=== PATIENT | male | born 1935 | race Native Hawaiian/Other Pacific Islander ===

== ENCOUNTER 2017-09-01 14:15 | Inpatient (IN) | payer OTHER ==
[~2017-09-01] VITALS: Ht 180.3 cm; Wt 99.9 kg
[2017-09-01 15:35] VITALS: BP 170/75; TEMP 98.2; Ht 180.3 cm; Wt 99.9 kg
[2017-09-01] MEDS ORDERED: DOCU100C10 PO (16:28)
[2017-09-01] MEDS ORDERED: GABA300C2 PO (16:29)
[2017-09-01] MEDS ORDERED: ENALAPRIL10 MG PO (16:29)
[2017-09-01] MEDS ORDERED: LEVO-T200 MCG PO (16:32)
[2017-09-01] MEDS ORDERED: XALATAN0.005 % OP (16:32)
[2017-09-01] MEDS ORDERED: OMEPRAZOLE20 M2 PO (16:33)
[2017-09-01] MEDS ORDERED: HYDR5TAB9 PO (16:34)
[2017-09-01] MEDS ORDERED: DIPH25CA90 PO (16:35)
[2017-09-01] MEDS ORDERED: ROBAXIN500 M1 PO (16:36)
[2017-09-01] MEDS ORDERED: MIRALAX3350 N1 PO (16:37)
[2017-09-01] MEDS ORDERED: ONDA4TAB3 PO (16:37)
[2017-09-01] MEDS ORDERED: ENOX30IN2 SC (16:38)
[2017-09-01 20:00] VITALS: BP 162/62; TEMP 99.1
--- NOTE | 2017-09-02 00:58 | NUR ---
09/01/171999 PT ASSISTED TO RESTROOM WITH WALKER TOLERATED WELL HAD BM.ASSISTED TO BED,PT WAS ABLE TO PULL SELF UP IN BED.SPLINT TO LEFT LEG INTACT.NO C/O VOICED AT THIS TIME.CC
--- NOTE | 2017-09-02 01:01 | NUR ---
09/02/17 0015 PT RESTING IN BED WITH EYES CLOSED RESP EVEN NONLABORED NAD NOTED.CC
--- NOTE | 2017-09-02 01:08 | NUR ---
09/02/17 0045 RESTING WITH EYES CLOSED NAD NOTED.CC
--- NOTE | 2017-09-02 04:27 | NUR ---
09/02/27 0420 AWAKE ALERT PT USING URINAL 250ML YELLOW URINE.PROVIDED MILK AND CRACKERS.CC
--- NOTE | 2017-09-02 06:22 | NUR ---
09/02/17 0615 PT AWAKE ALERT REQUESTED PAIN MEDICATION RATES PAIN 5 ON SCALE 1-10,NORCO GIVEN X 1 TABLET.CC
[2017-09-02 08:00] VITALS: BP 132/60; TEMP 98.6
--- NOTE | 2017-09-02 08:45 | NUR ---
IN TO INTERVIEW PT FOR SWING BED, UPON ARRIVAL TO PT'S ROOM PT IS SITTING UP IN BED FEEDING HIMSELF BREAKFAST. PT STATES THAT THIS MORNING IS THE BEST HE HAS EATEN SINCE HE HAS BEEN SICK. PT GIVEN THE WORDS SOCK BLUE AND BED AND PT IS ABLE TO REPEAT ALL 3. PT THEN TOLD TO REMEMBER ALL 3 WORDS TO RECALL THEM LATER IN INTERVIEW. PT STATES IT IS TUESDAY, AUGUST OF 2017 AND ALL INFO IS CORRECT. PT STATES HE IS NOT IN TOO MUCH PAIN THAT HE DOESN'T HAVE PAIN EVERY DAY JUST SOMETIMES. PT STATES HE IS SLEEPING ALOT IN THE DAYTIME SO SOMETIMES HE DOESNT SLEEP VERY WELL AT NIGHT. PT DENIES ANY FEELINGS OF HURTING HIMSELF OR FEELING BAD ABOUT HIMSELF. PT STATES HE IS GOING HOME ON DISCHARGE AND THAT HE LIVES ALONE AND WANTS TO MAKE SURE HE IS ABLE TO CARE FOR HIMSELF BEFORE HE LEAVES. PT ABLE TO RECALL SOCK BLUE AND BED WITHOUT ANY CUEING. PT DENIES ANY FURTHER NEEDS AT THIS TIME.
--- NOTE | 2017-09-02 12:30 | NUR ---
Pt. RESTING IN CHAIR FROM PHYSICAL THERAPHY. Pt. STATES I EXERCISE HARD. I'M A LITTLE TIRED.
--- NOTE | 2017-09-02 13:25 | NUR ---
MR. BANDAR BROUSSARD IS A 81 YEAR-OLD ADMITTED TO [facility] FOR REHABILITATION AFTER A SECOND KNEE SURGERY R/T PATIENT HAD SEVERAL FALLS WHILE IN REHAB AT ANOTHER FACILITY IN WHICH HIS LEFT KNEE DEHISSED AND BECAME INFECTED. IT ALSO APPEARS THAT PATIENT POSSIBLY BECAME SEPTIC. PATIENT UNDERWENT LEFT KNEE REPAIR WITH CULTURES OBTAINED AND A WASH OUT OF LEFT KNEE. PATIENT IS ON IV ANTIBIOTICS SENSITIVE TO THE BACTERIA CULTURED FROM THE LEFT KNEE. PATIENT AT THIS TIME HAS A KNEE IMMOBILIZER, USES A WALKER AND ONLY TOE TOUCH WEIGHT BEARING. MR BROUSSARD REQUIRES 24 HOUR [facility] CARE, WHICH IS A PRACTAL MATTER AND CAN ONLY BE DONE ON A INPATIENT BASIS BECAUSE HE LIVES AT HOME ALONE, HE NEEDS HELP WITH ALL ADLS AND ONLY HAS 2 DAUGHTERS WHO BOTH WORK AND ARE UNABLE TO PROVIDE THAT CARE FOR HIM AT THIS TIME. MANAGER REGULATORY WILL CONTINUE TO OBSERVE AND ASSIST WITH ANY MEDICALLY RELATED PSYCHOSOCIAL NEEDS PRN.
[2017-09-02 19:36] VITALS: BP 154/67; TEMP 98.6
[2017-09-03 07:48] VITALS: BP 108/59; TEMP 97.6
--- NOTE | 2017-09-03 14:00 | NUR ---
Pt. UP AMBULATE TO BATHROOM WITH ASSIST OF 2 PEOPLE AND WALKER. Pt. UNABLE TO BEND L LEG. DUE TO DRESSING WITH BRACE. Pt. BECOMES FATIGUE WHILE AMBULATING.
[2017-09-03 19:59] VITALS: BP 102/55; TEMP 98.7
[2017-09-04 07:47] VITALS: BP 118/59; TEMP 98.1
--- NOTE | 2017-09-04 14:17 | NUR ---
PT ASSISTED TO BR WITH HELP OF PCT AND NURSE. SKID SOCKS ON WITH AMBULATING BELT AND WALKER USED. PT RETURNED TO BED WITH ASSIST. PT TOLERATED WELL. NAD NOTED.
[2017-09-04 20:00] VITALS: BP 102/54; TEMP 98.8
[2017-09-05 07:38] VITALS: BP 118/62; TEMP 97.4
[2017-09-05 20:00] VITALS: BP 124/56; TEMP 98
--- NOTE | 2017-09-06 01:01 | NUR ---
09/06/17 0100 RESTING WITH EYES CLOSED NAD NOTED.CC
--- NOTE | 2017-09-06 03:35 | NUR ---
09/06/17 0335 RESTING IN BED WITH EYES CLOSED.CC
--- NOTE | 2017-09-06 05:25 | NUR ---
09/06/17 0525 RESTING QUEITLY WITH EYES CLOSED RESP EVEN NONLABORED.CC
[2017-09-06 09:31] VITALS: BP 118/59; TEMP 98.3
[2017-09-06 20:20] VITALS: BP 123/66; TEMP 98.9
--- NOTE | 2017-09-07 02:29 | NUR ---
09/07/17 0215 RESTING QUEITLY WITH EYES CLOSED AND NOTED.CC
--- NOTE | 2017-09-07 03:28 | NUR ---
09/07/17 0315 RESTING IN BED WITH EYES CLOSED NAD NOTED.CC
[2017-09-07 06:06] LABS: POTASSIUM 3.4 mmol/L (3.6-5.2)
[2017-09-07 06:14] LABS: PLATELET COUNT 325 K/uL (142-355)
[2017-09-07 08:02] VITALS: BP 119/58; TEMP 97.8
--- NOTE | 2017-09-07 10:29 | NUR ---
PATIENT HAS A FOLLOW UP MD APPT. WITH DR MO IN [facility] ON Tuesday09/08/17 AT 10:40 AM. TRANSPORT WITH [facility] HAS BEEN SET UP FOR 09/08/17 TO GEAR HOBBER SET UP OPERATOR AT 8:00 AM.
[2017-09-08 08:00] VITALS: BP 125/63; TEMP 98.4
--- NOTE | 2017-09-08 08:45 | NUR ---
PT TRANSPORTED TP DR APPOINTMENT VIA [facility].
--- NOTE | 2017-09-08 14:15 | NUR ---
PT RETURNED FROM DR TAYLOR VIA [facility]. PT KIKI REMOVED BY DR MO AND FULL CAST APPLIED. PT ALERT AND ORIENTED X3. SR UP X2. BED IN LOWEST POSITION. CALL LIGHT IN REACH. NAD NOTED. WILL CONTINUE TO MONITOR.
--- NOTE | 2017-09-08 14:57 | NUR ---
PT TO THERAPY VIA PT.
--- NOTE | 2017-09-08 16:54 | NUR ---
PT LEFT KNEE IN CAST FROM DR MO APPOINTMENT TODAY. CAST RAGES FROM MID THIGH TO ANKLE. NO SWELLING NOTED ON ANKLE OR FOOT AT THIS TIME. PEDAL PULSES PRESENT. PT STATES HE HAS FELT DIZZINESS WHEN STANDING. WILL CONTINUE TO MONITOR.
[2017-09-08 19:44] VITALS: BP 99/55; TEMP 98.2
[2017-09-09 08:00] VITALS: BP 104/57; TEMP 98.1
--- NOTE | 2017-09-09 13:34 | NUR ---
ASSISTED PT BACK TO BED WITH WALKER. PT DID WELL.
[2017-09-09 20:00] VITALS: BP 106/50; TEMP 97.4
--- NOTE | 2017-09-09 22:00 | NUR ---
PATIENT SLEEPING. NO DISTRESS NOTED.
--- NOTE | 2017-09-10 | NUR ---
PATIENT SLEEPING. NO DISTRESS NOTED.
--- NOTE | 2017-09-10 02:00 | NUR ---
RESTING COMFORTABLY WITH EYES CLOSED. NO DISTRESS NOTED.
--- NOTE | 2017-09-10 04:00 | NUR ---
PATIENT AWAKE AND REQUESTING MILK. VOICED NO COMPLAINTS.
--- NOTE | 2017-09-10 06:00 | NUR ---
PATIENT SLEEPING. NO DISTESS NOTED.
--- NOTE | 2017-09-10 10:45 | NUR ---
ASSISTED PT TO BR FOR BM.
--- NOTE | 2017-09-10 11:00 | NUR ---
PT HAD A BM. PT CLEANED HIMSELF. ASSISTED PT TO RECLINER. PT BATHED HIMSELF. PT SHAVED HIS FACE. PT HUNTER WELL. LINENS CHANGED. ASSISTED PT IN CHANGING SHIRT.
--- NOTE | 2017-09-10 11:45 | NUR ---
PICC LINE DRESSING CHANGED VIA SYNTHETIC FILAMENT EXTRUDER. PT HUNTER WELL.
--- NOTE | 2017-09-10 13:43 | NUR ---
ASSISTED PT BACK TO BED. ICE PACK PLACED ON L LEG.
--- NOTE | 2017-09-10 14:02 | NUR ---
PT EATING SNACKS.
[2017-09-10 20:00] VITALS: BP 112/49; TEMP 99.7
--- NOTE | 2017-09-10 23:56 | NUR ---
09/10/17 7128 A/O NAD NOTED,MILK PROVIDED AT BEDSIDE.CC
--- NOTE | 2017-09-11 01:07 | NUR ---
09/11/17 0100 AWAKE SAID HE IS HOT PROVIDED SOME ORANGE JUICE TURNED HEAT DOWN NO C/O PAIN CALL LIGHT WITHIN REACH.CC
--- NOTE | 2017-09-11 04:12 | NUR ---
09/11/17 0400 RESTING WITH EYES CLOSED RESP EVEN NONLABORED NAD NOTED.CC
--- NOTE | 2017-09-11 06:40 | NUR ---
09/11/17 0630 RESTING EASILY AROUSED NAD NOTED.CC
[2017-09-11 07:27] VITALS: BP 120/56; TEMP 97.9
--- NOTE | 2017-09-12 00:10 | NUR ---
09/12/17 0005 ASSITED TO SIT ON SIDE OF BED PT SAID HIS BACK WAS HURTING BUT WAS RELEIVED WHEN HE SIT UP A LITTLE BIT NAD NOTED. PT LAID BACK DOWN NO C/O VOICED MILK PROVIDED AT BEDSIDE.CC
--- NOTE | 2017-09-12 01:05 | NUR ---
09/12/17 0105 OUT OF BED TO RESTROOM WITH ASSISTANCE PT USING WALKER INSTRUCTED PT TO CALL WHEN HE IS FINISHED.CC
--- NOTE | 2017-09-12 01:16 | NUR ---
09/12/17 0115 ASSISTED BACK TO BED WITHOUT DIFFICULTY.CC
--- NOTE | 2017-09-12 03:10 | NUR ---
09/12/17 0300 ASSISTED TO BATHROOM WITH WALKER TOLERATED WELL NAD NOTED.PT THEN ASSISTED BACK TO BED WITHOUT DIFFICULTY.PT REPOSTIONED HIS SELF IN BED HE SAID HE IS HAVING SOME LOOSE STOOLS TOLD HIM THEY MAY HAVE TO HOLD HIS COLACE.CC
--- NOTE | 2017-09-12 05:21 | NUR ---
09/12/17 0515 RESTING QUEITLY WITH EYES CLOSED NAD NOTED.CC
[2017-09-12 10:10] VITALS: BP 108/57; TEMP 98.7
[2017-09-12 20:00] VITALS: BP 128/64; TEMP 98.6
--- NOTE | 2017-09-13 16:30 | NUR ---
ASSISTED PT FROM CHAIR TO BED WITH EXTENSIVE ASSISTANCE X2 PERSON AND USE OF WALKER. PT TOLERATED WELL WITH NO SOB OR DISTRESS NOTED. PT VOICES NO COMPLAINTS AT THIS TIME. WILL CONTINUE TO MONITOR.
--- NOTE | 2017-09-13 17:40 | NUR ---
ASSISTED PT TO BATHROOM WITH 2 PERSON ASSIST AND USE OF WALKER. PT TOLERATED WELL.
--- NOTE | 2017-09-13 18:07 | NUR ---
ASSISTED PT FROM BATHROOM TO BED. PT NEEDED MAX ASSISTANCE WITH USE OF WALKER AND TWO PERSON ASSIST. PT TOLERATED WELL WITH NO SOB OR DISTRESS NOTED.
[2017-09-13 20:00] VITALS: BP 114/57; TEMP 98.6
[2017-09-14 06:37] LABS: PLATELET COUNT 258 K/uL (142-355)
[2017-09-14 07:00] LABS: POTASSIUM 3.8 mmol/L (3.6-5.2)
[2017-09-14 08:04] VITALS: BP 130/55; TEMP 98.3
--- NOTE | 2017-09-14 10:30 | NUR ---
PT TO THERAPY.
--- NOTE | 2017-09-14 13:45 | NUR ---
PT ASSISTED WITH AMBULATION TO BED. PT TOLERATED WELL. NAD NOTED. WILL CONTINUE TO MONITOR.
--- NOTE | 2017-09-14 16:41 | NUR ---
PT RESTING WITH EYES CLOSED. RR EQUAL NONLABORED. WILL CONTINUE TO MONITOR. NAD NOTED.
[2017-09-14 20:00] VITALS: BP 120/54; TEMP 98.3
--- NOTE | 2017-09-15 02:11 | NUR ---
09/15/17 0210 PT AWAKE ALERT MILK CARRIED TO PATIENT NAD NOTED.CC
--- NOTE | 2017-09-15 03:08 | NUR ---
09/15/17 0305 RESTING QUEITLY WITH EYES CLOSED RESP EVEN NONLABORED.CC
--- NOTE | 2017-09-15 06:31 | NUR ---
09/15/17 0630 AWAKEN UPON ENTRY TO ROOM NKDA MEDICATION GIVEN.CC
[2017-09-15 07:59] VITALS: BP 108/55; TEMP 97.8
--- NOTE | 2017-09-15 08:50 | NUR ---
PT SHAVED HIS FACE AND DID OWN ORAL CARE.
--- NOTE | 2017-09-15 09:31 | NUR ---
PT AMBUATED TO BR WITH TWO PERSON ASSIST WITH WALKER FROM BED. PT TOLERATED WELL.
--- NOTE | 2017-09-15 13:37 | NUR ---
PT TAKEN TO THERAPY . PT ASSISTED TO WC WITH TWO PERSON ASSIST FROM BED.
--- NOTE | 2017-09-15 14:00 | NUR ---
PHYSICAL THERAPY ASSISTED PT TO SHOWER. PT BATHED SELF. PHYSICAL THERAPY ASSISTED PT BACK TO BED PER WALKER.
--- NOTE | 2017-09-15 14:54 | NUR ---
PT RETURN FROM PT. OT IN WITH PT TO GET A SHOWER. PCT IN WITH OT TO ASSIST WITH SHOWER. TWO PERSON ASSIST REQUIRED.
[2017-09-15 20:00] VITALS: BP 145/55; TEMP 99.1
--- NOTE | 2017-09-15 23:49 | NUR ---
09/15/17 5739 RESTING QUEITLY WITH EYES CLSOED RESP EVEN NONLABORED NAD NOTED.CC
--- NOTE | 2017-09-16 03:38 | NUR ---
09/16/17 0335 MILK AND CRACKERS PROVIDED AT BEDSIDE PER PT REQUEST NAD NOTED. NO C/O VOICED.CC
--- NOTE | 2017-09-16 06:08 | NUR ---
09/16/17 0605 AWAKEN UPON ENTRY TO ROOM AM MEDICATION GIVEN TOLERATED WELL.CC
[2017-09-16 08:13] VITALS: BP 99/53; TEMP 98.1
[2017-09-16 20:00] VITALS: BP 126/55; TEMP 98.1
[2017-09-17 08:00] VITALS: BP 124/59; TEMP 98.4
[2017-09-17 19:52] VITALS: BP 106/55; TEMP 98.9
[2017-09-18 07:07] VITALS: BP 119/59; TEMP 98.1
[2017-09-18 19:47] VITALS: BP 116/56; TEMP 99.1
--- NOTE | 2017-09-19 08:15 | NUR ---
ASSISTED PT TO BR FOR BM ONE PERSON ASSISTED.
--- NOTE | 2017-09-19 08:30 | NUR ---
ASSISTED PT BACK TO BED. PT HUNTER WELL.
--- NOTE | 2017-09-19 10:10 | NUR ---
ONE PERSON ASSISTED PT TO WC. PT WHEELING SELF AROUND IN THE HALLS.
--- NOTE | 2017-09-19 12:25 | NUR ---
PT TO REHAB FOR PT VIA WC.
--- NOTE | 2017-09-19 15:12 | NUR ---
PT BACK FROM REHAB.
[2017-09-19 20:00] VITALS: BP 113/59; TEMP 99
--- NOTE | 2017-09-20 06:13 | NUR ---
09/20/17 0600 AWAKEN UPON ENTRY TO ROOM PT DROWSY SAID HE IS STILL SLEEPY AM MEDICATION GIVEN TOLERATED WELL.NO C/O VOICED CALL LIGHT WITHIN REACH.CC
[2017-09-20 08:58] VITALS: BP 115/61; TEMP 98.1
--- NOTE | 2017-09-20 10:37 | NUR ---
PT TO REHAB VIA WC IN [facility].
[2017-09-20 20:21] VITALS: BP 107/60; TEMP 99.2
[2017-09-21 05:05] LABS: PLATELET COUNT 275 K/uL (142-355)
[2017-09-21 05:13] LABS: POTASSIUM 3.9 mmol/L (3.6-5.2)
[2017-09-21 07:57] VITALS: BP 101/58; TEMP 98.3
--- NOTE | 2017-09-21 11:57 | NUR ---
1157 DR CHAVEZ AT BS TO LOOK AT INCISION SITE TO LEFT KNEE ABOVE CAST. INDURATED AREA NOTED ABOVE KNEE/CASST. NO NEW ORDERS REC'D AT THIS TIME WILL CON'T TO MARYANNTR
[2017-09-21 19:49] VITALS: BP 115/53; TEMP 98.4
[2017-09-22 07:38] VITALS: BP 112/53; TEMP 98.8
[2017-09-22 20:00] VITALS: BP 104/54; TEMP 99.6
[2017-09-23 08:00] VITALS: BP 116/55; TEMP 97.9
--- NOTE | 2017-09-23 10:50 | NUR ---
OT IN ROOM WITH PT ASSISTING PT WITH SHOWER
--- NOTE | 2017-09-24 09:50 | NUR ---
ASSISTED PT FROM BED TO BATHROOM. PT REQUIRED MINIMUM ASSISTANCE - PT WAS ABLE TO AMBULATE TO BATHROOM WITH USE OF WALKER AND STAND BY ASSISTANCE. PT THEN AMBULATED WITH WALKER FROM BATHROOM TO CHAN CHAIR. PT TOLERATED WELL. PT VOICES NO COMPLAINTS AT THIS TIME. CALL LIGHT WAS PLACED WITHIN REACH. WILL CONTINUE TO MONITOR.
[2017-09-24 20:00] VITALS: BP 127/51; TEMP 98.2
[2017-09-25 08:31] VITALS: BP 106/56; TEMP 98
[2017-09-25 20:00] VITALS: BP 107/53; TEMP 98
[2017-09-26 07:47] VITALS: BP 125/62; TEMP 98.2
[2017-09-26 20:00] VITALS: BP 131/56; TEMP 98.8
[2017-09-27 08:19] VITALS: BP 104/58; TEMP 98.8
[2017-09-27 20:00] VITALS: BP 105/56; TEMP 98.7
[2017-09-28 08:21] VITALS: BP 105/46; TEMP 98.3
[2017-09-28 20:21] VITALS: BP 104/47; TEMP 99
[2017-09-29 05:35] LABS: PLATELET COUNT 229 K/uL (142-355)
[2017-09-29 05:58] LABS: POTASSIUM 3.2 mmol/L (3.6-5.2)
[2017-09-29 20:00] VITALS: BP 119/49; TEMP 98.7
--- NOTE | 2017-09-30 10:00 | NUR ---
PT UP TO SHOWER WITH PT AT BEDSIDE. PT BATHED SELF AND DRESSED SELF. PT ASSISTED PT BACK TO CHAIR. PT HUNTER WELL.
[2017-09-30 20:00] VITALS: BP 114/53; TEMP 99.2
[2017-10-01 08:00] VITALS: BP 117/57; TEMP 98.7
[2017-10-01 20:00] VITALS: BP 119/54; TEMP 99.3
--- NOTE | 2017-10-01 23:59 | NUR ---
10/02/17 3175 PAIN MEDICATION GIVEN HYDROCODONE GIVEN X 1 TABLET UNABLE TO SCAN DUE TO MEDICATION DROPPING OFF EMAR.CC
--- NOTE | 2017-10-02 06:11 | NUR ---
10/02/17 0610 AWAKEN UPON ENTRY TO ROOM NO C/O VOICED A/O.CC
[2017-10-02 08:00] VITALS: BP 99/56; TEMP 99
--- NOTE | 2017-10-02 13:52 | NUR ---
PT CALLED AND STATED HE THINKS HIS WOUND IS LEAKING. LOOKED AT SKIN UNDERNEATH THE CAST WITH A FLASHLIGHT. PUS DRAINAGE NOTED, DRAINAGE HAS SEEPED THROUGH CAST. DR. CHAVEZ CALLED NO ANSWER.
--- NOTE | 2017-10-03 13:20 | NUR ---
Pt. LEFT FOR MD APPT WITH DR. OM IN [facility]
--- NOTE | 2017-10-03 15:50 | NUR ---
DAUGHTER CALLED Pt. ADMITTED TO [facility] TO HAVE SURGERY TOMORROW. NOTIFIED FABY VILLALPANDO RN AND DR. SCOTT MORROW
== END 2017-10-03 15:55 | disposition home or self-care (01) | DRG 556 ==
LOC: MED/SURG 14:15
PROVIDERS: ADMIT Internal Medicine
DX: M62.81 Muscle weakness (generalized) (principal); Z47.1 Aftercare following joint replacement surgery; Z96.652 Presence of left artificial knee joint; R62.7 Adult failure to thrive
CPT/HCPCS: 36415; 80053; 80202; 83735; 85027; 85651; 86140; 87070; 87081; 87205; 94760; 96372